=== PATIENT | female | born 1955 | race Caucasian/White ===

== ENCOUNTER 2020-07-01 18:32 | Inpatient (IN) | payer MEDICARE, MEDICAID ==
[~2020-07-01] VITALS: Ht 160 cm; Wt 99.8 kg
[~2020-07-01 18:32] MED LIST: AMLODIPINE BESY10 MG PO; ASPIRIN EC81 MG PO; BASAGLAR K100 UNIT/1 SQ; CATAPRES 0.1MG0.1 MG PO; CLARITIN 10MG T10 MG PO; CLOPIDOGREL75 MG PO; COREG 25MG TAB25 MG PO; COZAAR100 MG PO; CRESTOR 10 MG T10 MG PO; EFFEXOR 37.537.5 MG PO; HYDRALAZINE HCL25 MG PO; HYDROCHLOROTH12.5 M1 PO; KEPPRA500 MG PO; NOVOLOG100 UNIT/1 SC; OMEPRAZOLE20 MG PO; SUBOXONE 8 MG-1 EACH PO; VITAMIN D250 MCG PO; VITAMIN D3 PO; ZOFRAN 8 MG TAB8 MG PO
[2020-07-01 22:09] LABS: HEMOGLOBIN 11.3 gm/dl (12.3-15.3); RED BLOOD COUNT 3.82 M/UL (4.00-5.10)
[2020-07-01 22:28] LABS: BUN/CREATININE RATIO 20 (0-10)
[2020-07-02] MEDS ORDERED: CRESTOR10 MG PO (01:36)
[2020-07-02] MEDS ORDERED: BUTALB-ACETAMI1 EAC1 PO (01:38)
[2020-07-02] MEDS ORDERED: BRIVIACT100 MG PO (01:40)
[2020-07-02] MEDS ORDERED: CITALOPRAM HBR20 MG PO (01:42)
[2020-07-02] MEDS ORDERED: [UNRECOGNIZED DRUG - OTHER] PO (01:43)
[2020-07-02] MEDS ORDERED: CATAPRES 0.1MG0.1 MG PO (01:45)
[2020-07-02] MEDS ORDERED: HYDRALAZINE HCL50 MG PO (01:48)
[2020-07-02] MEDS ORDERED: VIMPAT200 MG PO (01:49)
[2020-07-02] MEDS ORDERED: RA P-COL RITE1 EACH PO (02:10)
[2020-07-03 06:38] LABS: HEMOGLOBIN 9.9 gm/dl (12.3-15.3); WHITE BLOOD COUNT 5.5 K/UL (4.5-11.0)
[2020-07-03 06:55] LABS: RED BLOOD COUNT 3.32 M/UL (4.00-5.10)
[2020-07-05 06:30] LABS: HEMOGLOBIN 9.3 gm/dl (12.3-15.3); RED BLOOD COUNT 3.14 M/UL (4.00-5.10)
[2020-07-06 05:58] LABS: HEMOGLOBIN 8.6 gm/dl (12.3-15.3); RED BLOOD COUNT 2.89 M/UL (4.00-5.10)
[2020-07-07 04:46] LABS: HEMOGLOBIN 9.2 gm/dl (12.3-15.3); RED BLOOD COUNT 3.09 M/UL (4.00-5.10); WHITE BLOOD COUNT 3.9 K/UL (4.5-11.0)
--- NOTE | 2020-07-07 12:22 | NUR ---
DR. IRVIN ON THE FLOOR. REPORTED PATIENT ELEVATED B/P AWARE AND ACKNOWELDGED
[2020-07-07] MEDS ORDERED: HYDRALAZINE HCL50 MG PO (12:29)
[2020-07-07] MEDS ORDERED: CATAPRES 0.1MG0.1 MG PO ×2 (12:29→12:34)
--- NOTE | 2020-07-07 16:52 | NUR ---
HAS BEEN TALKING WITH DR. IRVIN PATIENT BEING INFORMED BY DR. KNIGHT TO STAY ONE MORE DAY AND TO GO HOME TOMMORROW. DR. IRVIN VERB WILL TALK WITH DR. KNIGHT. PATIENT REFUSED TO GO HOME AND REQUESTED TO STAY FOR THE NIGHT. DR. IRVIN SPOKEN WITH THE PATIENT AND FAMILY OVER THE PHONE. NO ORDER TO D/C PATIENT AT THIS TIME
[2020-07-08 03:30] LABS: HEMOGLOBIN 9.5 gm/dl (12.3-15.3); RED BLOOD COUNT 3.25 M/UL (4.00-5.10); WHITE BLOOD COUNT 3.6 K/UL (4.5-11.0)
== END 2020-07-08 14:32 | disposition home or self-care (01) | DRG 286 ==
LOC: ER1 18:32 → CDU 07-02 00:36 → CCU 07-02 10:59 → MED SURG 4 07-02 10:59 → CCU 07-02 21:14 → MED SURG 4 07-03 15:32
PROVIDERS: Family Medicine; Internal Medicine; ADMIT Internal Medicine
PROC: B24BZZZ Ultrasonography of Heart with Aorta (ICD-10-PCS; principal; 2020-07-02)
PROC: 0T9B70Z Drainage of Bladder with Drainage Device, Via Natural or Artificial Opening (ICD-10-PCS; 2020-07-02)
PROC: 4A023N8 Measurement of Cardiac Sampling and Pressure, Bilateral, Percutaneous Approach (ICD-10-PCS; 2020-07-07)
DX: I16.1 Hypertensive emergency (principal); N17.0 Acute kidney failure with tubular necrosis; Z68.41 Body mass index [BMI] 40.0-44.9, adult; I50.32 Chronic diastolic (congestive) heart failure; I12.9 Hypertensive chronic kidney disease with stage 1 through stage 4 chronic kidney disease, or unspecified chronic kidney disease; R07.9 Chest pain, unspecified; Z20.822 Contact with and (suspected) exposure to COVID-19; J44.9 Chronic obstructive pulmonary disease, unspecified; E11.22 Type 2 diabetes mellitus with diabetic chronic kidney disease; N18.30 Chronic kidney disease, stage 3 unspecified; G40.909 Epilepsy, unspecified, not intractable, without status epilepticus; E78.5 Hyperlipidemia, unspecified; G47.33 Obstructive sleep apnea (adult) (pediatric); E66.9 Obesity, unspecified; D64.9 Anemia, unspecified; I05.0 Rheumatic mitral stenosis; I35.0 Nonrheumatic aortic (valve) stenosis; I13.0 Hypertensive heart and chronic kidney disease with heart failure and stage 1 through stage 4 chronic kidney disease, or unspecified chronic kidney disease; T38.3X1A Poisoning by insulin and oral hypoglycemic [antidiabetic] drugs, accidental (unintentional), initial encounter; Y92.239 Unspecified place in hospital as the place of occurrence of the external cause; I69.328 Other speech and language deficits following cerebral infarction; Z83.3 Family history of diabetes mellitus; Z98.890 Other specified postprocedural states; Z82.49 Family history of ischemic heart disease and other diseases of the circulatory system; Z79.02 Long term (current) use of antithrombotics/antiplatelets; Z79.4 Long term (current) use of insulin
CPT/HCPCS: ECHO; 36415; 71045; 80048; 80053; 82436; 82550; 82553; 82570; 82810; 82962; 83540; 83550; 83735; 83874; 84133; 84156; 84300; 84439; 84443; 84484; 85025; 86140; 93005; 93306; 94760; 96365; 96366; 96368; 96375; 99152; 99153; 99285; C1751; C1769; G0278; J0360; J1644; J1650; J2250; J2405; J3010; J7030; Q9965; U0002

== ENCOUNTER 2021-03-29 12:09 | Inpatient (IN) | payer MEDICARE, MEDICAID ==
[~2021-03-29] VITALS: Ht 160 cm; Wt 88.5 kg
[~2021-03-29 12:09] MED LIST changes: +BRIVIACT100 MG PO; +BUTALB-ACETAMI1 EAC1 PO; +CITALOPRAM HBR20 MG PO; +CRESTOR10 MG PO; +HYDRALAZINE HCL50 MG PO; +ONFI20 MG PO; +RA P-COL RITE1 EACH PO; +VIMPAT200 MG PO; -VITAMIN D3 PO; -ZOFRAN 8 MG TAB8 MG PO
[2021-03-29 12:53] LABS: HEMOGLOBIN 11.1 gm/dl (12.3-15.3); RED BLOOD COUNT 3.67 M/UL (4.00-5.10); WHITE BLOOD COUNT 6.2 K/UL (4.5-11.0)
[2021-03-29] MEDS ORDERED: HYDRALAZINE HCL25 MG PO (13:14)
[2021-03-29] MEDS ORDERED: CELEXA40 MG PO (13:14)
[2021-03-29] MEDS ORDERED: LASIX20 MG PO (13:18)
[2021-03-29] MEDS ORDERED: CYCLOBENZAPRINE10 MG PO (13:22)
[2021-03-29] MEDS ORDERED: BUPRENORPHIN-N1 EACH SL (13:36)
[2021-03-29] MEDS ORDERED: BASAGLAR K100 UNIT/1 INJ (14:22)
[2021-03-29] MEDS ORDERED: VITAMIN D325 MCG PO (17:28)
[2021-03-29] MEDS ORDERED: ONDANSETRON HCL8 MG PO (17:37)
[2021-03-30 07:49] LABS: HEMOGLOBIN 10.5 gm/dl (12.3-15.3); RED BLOOD COUNT 3.61 M/UL (4.00-5.10)
[2021-03-30 07:50] LABS: WHITE BLOOD COUNT 8.2 K/UL (4.5-11.0)
[2021-03-31 07:32] LABS: HEMOGLOBIN 11.9 gm/dl (12.3-15.3)
[2021-03-31 07:33] LABS: RED BLOOD COUNT 4.02 M/UL (4.00-5.10); WHITE BLOOD COUNT 10.7 K/UL (4.5-11.0)
--- NOTE | 2021-03-31 15:15 | NUR ---
Late entry - called Dr. Justin at approx. 1430 patient vomited large amount of brown colored emesis- phenergan given earlier B/P elevated to 194/127 after clonodine and hydralazine given as ordered. Dr. Justin aware and states is coming to assess patient
--- NOTE | 2021-03-31 19:48 | NUR ---
Late Entry -1800 patient's b/p remains elevated after Dr. Justin gave additional b/p medications (see mar). B/P remains 186/[address] Justin and made her aware - no new orders per Dr. Justin nephrology wanted patient's B/P to come down slowly.
[2021-04-01 08:14] LABS: ANTISTREPTOLYSIN O AB 81.2 IU/mL (0.0-200.0); COMPLEMENT C3, SERUM 135 mg/dL (82-167); COMPLEMENT C4, SERUM 12 mg/dL (12-38)
[2021-04-01 13:14] LABS: ANTI-DSDNA ANTIBODIES 5 IU/mL (0-9); HBSAG SCREEN Negative (Negative); HEP B CORE AB, TOT Negative (Negative); HEP C VIRUS AB 0.1 (0.0-0.9)
[2021-04-01 17:09] LABS: ATYPICAL PANCA <1:20 titer (Neg:<1:20); CYTOPLASMIC (C-ANCA) <1:20 titer (Neg:<1:20); PERINUCLEAR (P-ANCA) <1:20 titer (Neg:<1:20)
--- NOTE | 2021-04-02 10:45 | NUR ---
B/P 129/58 RECHECKED AFTER A.M. MEDS GIVEN
[2021-04-02] MEDS ORDERED: CATAPRES 0.1MG0.1 MG PO (12:30)
[2021-04-02] MEDS ORDERED: COZAAR 25MG TAB25 MG PO (12:30)
[2021-04-02 15:14] LABS: A/G RATIO 1.1 (0.7-1.7); ALBUMIN 3.4 g/dL (2.9-4.4); ALPHA-1-GLOBULIN 0.3 g/dL (0.0-0.4); BETA GLOBULIN 0.7 g/dL (0.7-1.3); GAMMA GLOBULIN 1.3 g/dL (0.4-1.8); GLOBULIN, TOTAL 3.4 g/dL (2.2-3.9); IMMUNOGLOBULIN A, QN, SERUM 244 mg/dL (87-352); IMMUNOGLOBULIN G, QN, SERUM 1330 mg/dL (586-1602); IMMUNOGLOBULIN M, QN, SERUM 113 mg/dL (26-217); M-SPIKE Not Observed g/dL (Not Observed); PROTEIN, TOTAL, SERUM 6.8 g/dL (6.0-8.5)
[2021-04-06 01:06] LABS: METANEPHRINE, PL 33.5 pg/mL (0.0-88.0); NORMETANEPHRINE, PL 976.3 pg/mL (0.0-285.2)
== END 2021-04-02 16:03 | disposition home or self-care (01) | DRG 305 ==
LOC: ER1 12:09 → CDU 15:11 → MED SURG 4 15:11
PROVIDERS: Emergency Medicine; Internal Medicine; Internal Medicine Nephrology; Physician Assistant Medical; ADMIT Internal Medicine
DX: I16.0 Hypertensive urgency (principal); N17.9 Acute kidney failure, unspecified; I50.32 Chronic diastolic (congestive) heart failure; E87.1 Hypo-osmolality and hyponatremia; I13.0 Hypertensive heart and chronic kidney disease with heart failure and stage 1 through stage 4 chronic kidney disease, or unspecified chronic kidney disease; N18.30 Chronic kidney disease, stage 3 unspecified; E78.5 Hyperlipidemia, unspecified; G40.909 Epilepsy, unspecified, not intractable, without status epilepticus; J44.9 Chronic obstructive pulmonary disease, unspecified; G47.33 Obstructive sleep apnea (adult) (pediatric); G89.29 Other chronic pain; I08.0 Rheumatic disorders of both mitral and aortic valves; I27.20 Pulmonary hypertension, unspecified; E66.9 Obesity, unspecified; F17.210 Nicotine dependence, cigarettes, uncomplicated; E11.22 Type 2 diabetes mellitus with diabetic chronic kidney disease; K21.9 Gastro-esophageal reflux disease without esophagitis; D64.9 Anemia, unspecified; R80.9 Proteinuria, unspecified; Z86.16 Personal history of COVID-19; Z86.73 Personal history of transient ischemic attack (TIA), and cerebral infarction without residual deficits; Z90.49 Acquired absence of other specified parts of digestive tract; Z90.710 Acquired absence of both cervix and uterus; Z95.818 Presence of other cardiac implants and grafts; Z88.2 Allergy status to sulfonamides; Z79.899 Other long term (current) drug therapy; Z82.49 Family history of ischemic heart disease and other diseases of the circulatory system; Z83.3 Family history of diabetes mellitus; Z68.34 Body mass index [BMI] 34.0-34.9, adult
CPT/HCPCS: 36415; 80048; 80053; 81001; 82550; 82553; 82570; 82784; 82962; 83520; 83735; 83835; 83874; 83883; 84155; 84156; 84165; 84439; 84443; 84484; 85025; 85027; 86038; 86060; 86160; 86162; 86225; 86256; 86334; 86704; 86706; 86708; 86803; 87340; 93005; 96374; 96375; 96376; 99285; G0378; J0360; J2270; J2405; J2550; J7030; U0002